=== PATIENT | female | born 1990 | race Hispanic/Latino ===

== ENCOUNTER 2016-10-29 14:03 | Emergency (ER) | payer MEDICAID ==
[2016-10-29 14:09] VITALS: BMI 22.0
[2016-10-29 14:11] VITALS: BP 113/57; PULSE 67; RESP 19; TEMP 97.8; O2SAT 98
--- NOTE | 2016-10-29 14:54 | ED PDOC ---
HPI: General Adult Time Seen by Provider: 10/29/16 14:24 Chief Complaint (Nursing): Abdominal Pain Chief Complaint (Provider): Abdominal Pain History Per: Patient History/Exam Limitations: no limitations Onset/Duration Of Symptoms: Days (x5 days ) Current Symptoms Are (Timing): Still Present Additional Complaint(s): 26 y/o female presents to the emergency department with a complaint of pain in the pelvic region bilaterally since 10/25/2016. Patient says pain is constant but had not experienced this before. Denies hematuria, dysuria, vaginal discharge or blood, fever, nausea, vomiting and diarrhea . PMD: Dr. Murray Murry Past Medical History Reviewed: Historical Data, Nursing Documentation, Vital Signs Vital Signs: Last Vital Signs Temp 97.8 F 10/29/16 14:10 Pulse 67 10/29/16 14:10 Resp 19 10/29/16 14:10 BP 113/57 L 10/29/16 14:10 Pulse Ox 98 10/29/16 14:56 - Medical History PMH: No Chronic Diseases - Surgical History Surgical History: No Surg Hx - Family History Family History: States: Unknown Family Hx - Home Medications Home Medications: Ambulatory Orders Medication Instructions Recorded Ibuprofen [Motrin] 600 mg PO Q6H PRN #20 tab 10/29/16 - Allergies Allergies/Adverse Reactions: Allergies Allergy/AdvReac Type Severity Reaction Status Date / Time No Known Allergies Allergy Verified 10/29/16 14:29 Review of Systems ROS Statement: Except As Marked, All Systems Reviewed And Found Negative Constitutional: Negative for: Fever Gastrointestinal: Negative for: Nausea, Vomiting, Diarrhea Genitourinary Female: Positive for: Pelvic Pain (bilaterally). Negative for: Dysuria, Hematuria, Vaginal Discharge, Vaginal Bleeding Physical Exam - Reviewed Nursing Documentation Reviewed: Yes Vital Signs Reviewed: Yes - Physical Exam Appears: Positive for: Non-toxic, No Acute Distress Head Exam: Positive for: ATRAUMATIC, NORMOCEPHALIC Skin: Positive for: Normal Color, Warm, Dry Cardiovascular/Chest: Positive for: Regular Rate, Rhythm Respiratory: Positive for: Normal Breath Sounds Gastrointestinal/Abdominal: Positive for: Normal Exam, Bowel Sounds, Soft. Negative for: Tenderness, Guarding, Rebound Neurologic/Psych: Positive for: Alert, Oriented - ECG O2 Sat by Pulse Oximetry: 98 (RA) Pulse Ox Interpretation: Normal - CT Scan/US Pelvic ultrasound Other Rad Studies (CT/US): Radiology Report Reviewed (Left intra-ovarian and para ovarian cyst for which follow-up in 2-3 menstrual cycles is recommended.) Medical Decision Making Medical Decision Making: Time: 14:24 Initial impression: Pelvic Pain Initial plan: --ED urine Dipstick (POC) --ED Urine (POC) --Revaluation Scribe Attestation: Documented by Santa Hannon, acting as a scribe for Rena Bhagat MD. Provider Scribe Attestation: All medical record entries made by the Scribe were at my direction and personally dictated by me. I have reviewed the chart and agree that the record accurately reflects my personal performance of the history, physical exam, medical decision making, and the department course for this patient. I have also personally directed, reviewed, and agree with the discharge instructions and disposition. Disposition - Clinical Impression Clinical Impression: Ovarian cyst - Disposition Referrals: [facility] [Outside] Disposition: Routine/Home Disposition Time: 19:11 Condition: STABLE Prescriptions: Ibuprofen [Motrin] 600 mg PO Q6H PRN #20 tab PRN Reason: Pain, Moderate (4-7) Instructions: Ovarian Cyst (ED)
--- NOTE | 2016-10-30 08:27 | US ---
PROCEDURE: HISTORY: BLQ pain COMPARISON: TECHNIQUE: FINDINGS: The uterus measures 8.6 x 5.0 x 3.7 centimeters. The endometrium measures 1 centimeter. The right ovary measures 3.6 x 2.7 x 1.8 centimeters. The left ovary measures 5.7 x 4.3 x 2.6 centimeters. There is a para ovarian cyst measuring 2.7 centimeters as well as an intra Varian cyst measuring 2.6 centimeters. IMPRESSION: Left intra-ovarian and para ovarian cyst for which follow-up in 2-3 menstrual cycles is recommended.
== END 2016-10-29 19:24 | disposition home or self-care (01) ==
LOC: H.ER 14:03
DX: N83.202 Unspecified ovarian cyst, left side (principal)